=== PATIENT | female | born 1995 | race Caucasian/White ===

== ENCOUNTER 2017-04-10 21:41 | Emergency (ER) | payer OTHER ==
[~2017-04-10] VITALS: Ht 160 cm; Wt 56.7 kg
[~2017-04-10 21:41] MED LIST: ZANTAC 150150 MG PO; ZOFRAN ODT4 MG SL; ZOLOFT50 MG PO
[2017-04-10] MEDS ORDERED: MELODETTA 24 F1 EACH PO (21:58)
[2017-04-10] MEDS ORDERED: FLUOXETINE HCL40 MG PO (22:07)
[2017-04-10] MEDS ORDERED: MINASTRIN 24 F1 EACH PO (22:11)
[2017-04-10 22:12] LABS: BASO % 0.3 % (0.0-1.0); EOS # 0.1 10*3/uL (0.0-0.4); EOS % 1.4 % (1.0-4.0); HEMATOCRIT 39.1 % (37.0-47.0); HEMOGLOBIN 12.9 g/dl (12.0-16.0); LYMPH # 1.6 10*3/uL (1.3-4.4); LYMPH % 20.1 % (27.0-41.0); MEAN CELL VOLUME 88.7 fl (81.0-99.0); MEAN CORPUSCULAR HGB 29.3 pg (27.0-31.0); MEAN PLATELET VOLUME 10.3 fl (9.6-12.3); MONO # 0.4 10*3/uL (0.1-1.0); MONO % 4.9 % (3.0-9.0); NEUT # 5.8 10*3/uL (2.3-7.9); NEUT % 72.7 % (47.0-73.0); PLATELET COUNT AUTOMATED 215 10*3/uL (130-400); RED BLOOD COUNT 4.41 10*6/uL (4.10-5.10); RED CELL DISTRI WIDTH 13.9 % (0-14.5)
[2017-04-10] MEDS ORDERED: DIAZEPAM5 MG PO (22:12)
[2017-04-10] MEDS ORDERED: REXULTI0.25 MG PO (22:14)
[2017-04-10 22:24] LABS: ALBUMIN 3.8 gm/dl (3.1-4.5); ALKALINE PHOSPHATASE 56 U/L (45-117); BUN 6 mg/dl (7-24); CHLORIDE 107 mmol/L (98-107); CREATININE 0.85 mg/dL (0.55-1.02); POTASSIUM 3.4 mmol/L (3.5-5.1); SGOT/AST 19 IU/L (3-35); SGPT/ALT 17 U/L (12-78); SODIUM 139 mmol/L (136-145); TOTAL PROTEIN 7.9 gm/dL (6.4-8.2)
[2017-04-10 22:25] LABS: ACETAMINOPHEN (TYLENOL) < 2.0 ug/ml (10-30)
[2017-04-10 22:37] LABS: BILIRUBIN NEGATIVE (NEGATIVE); BLOOD NEGATIVE (NEGATIVE); CLARITY CLEAR (CLEAR); COLOR YELLOW (YELLOW); GLUCOSE NEGATIVE (NEGATIVE); KETONE NEGATIVE (NEGATIVE); LEUKO ESTERASE NEGATIVE (NEGATIVE); NITRITE NEGATIVE (NEGATIVE); UROBILINOGEN 0.2 E.U./dl (0.2-1.0)
[2017-04-10 22:39] LABS: BETA-HCG, QUANT < 1.0 mIU/mL (1-3)
[2017-04-10 22:45] LABS: URINE AMPHETAMINES < 1000 (1000ng/ml); URINE BARBITURATES < 200 (200ng/ml); URINE BENZODIAZEPINES < 200 (200ng/ml); URINE CANNABINOIDS (THC) < 50 (50ng/ml); URINE COCAINE < 300 (300ng/ml); URINE METHADONE < 300 (300ng/ml); URINE OPIATES < 300 (300ng/ml)
[2017-04-10 22:47] LABS: URINE PHENCYCLIDINE < 25 (25ng/ml)
[2017-04-10 22:51] LABS: EPITHELIAL CELLS 0-5
[2017-04-10 22:52] LABS: WBC 0-2 wbc/hpf (0-5)
== END 2017-04-11 10:33 | disposition home or self-care (01) ==
LOC: ED 21:41
PROVIDERS: Student in an Organized Health Care Education/Training Program
DX: F32.9 Major depressive disorder, single episode, unspecified (principal); R45.851 Suicidal ideations; Z79.899 Other long term (current) drug therapy